=== PATIENT | male | born 1990 | race Caucasian/White ===

== ENCOUNTER 2016-09-20 23:49 | Emergency (ER) | payer OTHER ==
[2016-09-21] MEDS ORDERED: TORAdol 30 mg Injection IM ONE (00:07)
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
[2016-09-21] MEDS ORDERED: TORAdol 30 mg Injection ONE (00:11)
[2016-09-21 00:33] VITALS: BP 125/64; PULSE 88; O2SAT 97
--- NOTE | 2016-09-21 09:03 | XRAY ---
Indication: Third metacarpal pain following injury. Comparison: None 3 views of the right hand demonstrates old distal fifth metacarpal fracture. No other bony, articular, or soft tissue abnormalities.
== END 2016-09-21 00:34 | disposition home or self-care (01) ==
LOC: ED 23:49
DX: S60.221A Contusion of right hand, initial encounter (principal); W22.8XXA Striking against or struck by other objects, initial encounter
CPT/HCPCS: 73130; 96372; 99284; J1885

== ENCOUNTER 2016-09-25 17:46 | Emergency (ER) | payer OTHER ==
[2016-09-25 17:59] VITALS: BP 145/92; PULSE 82; O2SAT 97
--- NOTE | 2016-09-25 18:09 | ERPHSYRPT ---
- History of Present Illness Time Seen by Provider: 09/25/16 18:03 Source: patient Exam Limitations: no limitations Patient Subjective Stated Complaint: "last night, I had a bunch of blood come out of my penis. It has been fine today. I have a lump on my left nut though. i got it checked last year." Triage Nursing Assessment: aox3, breathign easy unlbaored, skin pink warm dry, steady gait Physician History: 26-year-old white male who states that he was treated for GC approximately one month ago arrives with complaint of pain in bilateral testicles states he had some blood in his urine symptoms for 2-3 days. He denies any injury. He also states that he has had a bump in his scrotum near his left testicle for over a year. Patient has no vomiting no abdominal pain no other complaints. Timing/Duration: day(s) (2-3 days), other (lump in his scrotum there his left testicle for 1 year) Modifying Factors: Improves With: nothing Associated Symptoms: other (Hematuria last night testicle pain 2-3 days), No nausea, No vomiting, No abdominal pain, No shortness of breath, No heartburn, No diaphoresis, No cough, No chills, No chest pain, No fever, No headaches, No loss of appetite, No malaise, No rash, No syncope, No seizure, No weakness Allergies/Adverse Reactions: No Known Drug Allergies Allergy (Unverified 09/21/16 00:09) Home Medications: No Home Meds 1 [facility] UD 09/21/16 [History] Hx Tetanus, Diphtheria Vaccination/Date Given: Yes Hx Influenza Vaccination/Date Given: Yes Hx Pneumococcal Vaccination/Date Given: No - Review of Systems Constitutional: No Fever, No Chills Eyes: No Symptoms Ears, Nose, & Throat: No Symptoms Respiratory: No Cough, No Dyspnea Cardiac: No Chest Pain, No Edema, No Syncope Abdominal/Gastrointestinal: No Abdominal Pain, No Nausea, No Vomiting, No Diarrhea Genitourinary Symptoms: Dysuria, Hematuria, Testicle Pain, Other (lump on left testicle for one year) Musculoskeletal: No Back Pain, No Neck Pain Skin: No Symptoms Neurological: No Dizziness, No Focal Weakness, No Sensory Changes Psychological: No Symptoms Endocrine: No Symptoms All Other Systems: Reviewed and Negative - Past Medical History Pertinent Past Medical History: No - Past Surgical History Past Surgical History: Yes Musculoskeletal: Orthopedic Surgery Other Surgical History: rt hand tendon repair - Social History Smoking Status: Former smoker How long have you smoked: 9 yrs Exposure to second hand smoke: Yes Drug Use: none Patient Lives Alone: No - Nursing Vital Signs Nursing Vital Signs: Initial Vital Signs Temperature 98.7 F Temperature Source Oral Pulse Rate 82 Respiratory Rate 12 Blood Pressure [Right Arm] 145/92 Pain Intensity 0 - Physical Exam General Appearance: no apparent distress, alert Eye Exam: PERRL/EOMI, eyes nml inspection Ears, Nose, Throat Exam: normal ENT inspection, TMs normal, pharynx normal, moist mucous membranes Neck Exam: normal inspection, non-tender, supple, full range of motion Respiratory Exam: normal breath sounds, lungs clear, No respiratory distress Cardiovascular Exam: regular rate/rhythm, normal heart sounds, normal peripheral pulses Gastrointestinal/Abdomen Exam: soft, normal bowel sounds, No tenderness, No mass Male Genitalia Exam: normal genitalia, testicular tenderness (slight testicle tenderness bilaterally), other (questionable less than 1 cm slightly firm area medial to left testicle) Back Exam: normal inspection, normal range of motion, No CVA tenderness, No vertebral tenderness Extremity Exam: normal inspection, normal range of motion, pelvis stable Neurologic Exam: alert, oriented x 3, cooperative, normal mood/affect, nml cerebellar function, nml station & gait, sensation nml, No motor deficits Skin Exam: normal color, warm, dry, No rash Lymphatic Exam: No adenopathy SpO2 Interpretation: normal (97%) SpO2: 97 Oxygen Delivery: Room Air - Course Nursing assessment & vital signs reviewed: Yes Ordered Tests: Active Orders 24 hr Category Date Time Status UA Stat Lab 09/25/16 18:25 Completed Lab/Rad Data: Laboratory Results 09/25/16 Range/Units 18:25 Ur Collection Type CLEAN CATCH Urine Color YELLOW (YELLOW) Urine Appearance CLEAR (CLEAR) Urine pH 7.0 (5-6) Ur Specific [place] 1.010 (1.005-1.025) Urine Protein NEGATIVE (Negative) Urine Glucose (UA) NEGATIVE (NEGATIVE) mg/dL Urine Ketones NEGATIVE (NEGATIVE) Urine Nitrite NEGATIVE (NEGATIVE) Urine Bilirubin NEGATIVE (NEGATIVE) Urine Urobilinogen 0.2 (0-1) mg/dL Urine WBC (Auto) NEGATIVE (NEGATIVE) Urine RBC (Auto) NEGATIVE (0-5) Roby/ul Specimen Received [id number] - Progress Progress: improved Progress Note: 09/25/16 18:08 This is a 26-year-old white male who was recently treated for gonorrhea. He arrives with complaints of hematuria last night he states he been having some pain in his testicles for a couple of days. He states he feels like he has a lump near his left testicle (medial to it for over a year. Will go ahead and get UA GC Chlamydia. The area near his left testicle medial to it. Appears to be slightly firm however very difficult to find. Will most likely plan to have patient follow-up with his family doctor or Dr. Jauregui 09/25/16 20:02 Patient's urine is clean. Awaiting GC and chlamydia. Patient with continuing pain in the testicles. Examination of testicles are no masses testicles are descended bilaterally really minimal tenderness. Patient does have a 0.5 cm of somewhat firm feeling area medial to his left testicle. Patient has recently been treated for gonorrhea Will go ahead and give the patient Rocephin 1 g IM repeat Zithromax. Send patient home with [employer]. Patient to follow-up with Dr. Juventino mclean or family doctor of his choice. - Departure Time of Disposition: 20:03 Departure Disposition: Home Clinical Impression: bilateral testicle pain, history of recent STD, palpable mass in scrotum Condition: Fair Critical Care Time: No Additional Instructions: Return home, Plenty of fluids, [place] 5/325 one orally every 4-6 hours as needed for pain #12, Follow-up with your family doctor (list) or Return for acute distress or for severe symptoms Prescriptions: Hydrocodone/Acetaminophen [[place] 5-325 Tablet] 1 each PO Q4-6HPRN PRN #12 tablet PRN Reason: Pain
[2016-09-25 19:05] LABS: COMPLETE URINE MICROSCOPIC? NO; Collection Type CLEAN CATCH
[2016-09-25] MEDS ORDERED: Zithromax 250 MG TABLET PO ONE (20:06)
[2016-09-25] MEDS ORDERED: Rocephin 1000 MG INJ IM ONE (20:06)
[2016-09-25] MEDS ORDERED: Rocephin 1000 MG INJ ONE (20:10)
[2016-09-25] MEDS ORDERED: Zithromax 250 MG TABLET ONE (20:10)
[2016-09-25] MEDS ORDERED: XYLOCAINE 1% HCL 20 ML MDV ONE (20:11)
[2016-09-25 20:52] LABS: CHLAMYDIA URINE NEGATIVE; GC URINE NEGATIVE
== END 2016-09-25 20:39 | disposition home or self-care (01) ==
LOC: ED 17:46
DX: N50.812 Left testicular pain (principal); N50.811 Right testicular pain; A63.8 Other specified predominantly sexually transmitted diseases; R22.2 Localized swelling, mass and lump, trunk; R30.0 Dysuria; R31.9 Hematuria, unspecified
CPT/HCPCS: 81002; 87491; 87591; 96372; 99284; J0696; A9270-GY